=== PATIENT | female | born 1985 | race African-American/Black ===

== ENCOUNTER 2020-05-05 03:08 | Emergency (ER) | payer MEDICAID, OTHER ==
[~2020-05-05] VITALS: Ht 162.6 cm; Wt 70.0 kg
[2020-05-05 03:14] VITALS: BP 125/87
[2020-05-05] MEDS ORDERED: IBUPROFEN 600MG TABLET PO ONE (03:45)
== END 2020-05-05 04:04 | disposition home or self-care (01) ==
LOC: ER 03:08
DX: M79.672 Pain in left foot (principal); F15.10 Other stimulant abuse, uncomplicated
CPT/HCPCS: 99283